=== PATIENT | female | born 1970 | race Caucasian/White ===

== ENCOUNTER 2025-04-13 19:15 | Emergency (ER) | payer OTHER, SELFPAY ==
--- NOTE | 2025-04-13 19:16 | ED_ITS ---
HPI - Extremity Problem General Chief complaint: Extremity Problem,Nontraumatic Stated complaint: Swelling In Feet and Legs Time Seen by Provider: 04/13/25 19:16 Source: patient Mode of arrival: ambulatory Limitations: no limitations History of Present Illness HPI Narrative: Alyse is a 54 year old female patient presenting to the clinic today with c/o bilateral lower extremity swelling x 2-3 days. Her father is at [facility] and recently had a 3 way bypass surgery. Has been sitting a lot at [place] and staying in a nearby hotel. Denies any chest pain or shortness of breath. Denies any kidney disease. History of gastric bypass and GERD. Related Data Allergies Allergy/AdvReac Type Severity Reaction Status Date / Time NSAIDS (Non-Steroidal AdvReac Intermediate gastric Verified 04/13/25 19:32 Anti-Inflamma bypass beta blockers AdvReac Intermediate Other Uncoded 04/13/25 19:32 Review of Systems Review of Systems: Pertinent positives per HPI. Patient denies any fever, chills, rash, headache, visual changes, dizziness, cough, runny nose, sore throat, shortness of breath, chest pain, palpitations, nausea, vomiting, diarrhea, constipation, abdominal pain, or any urinary issues. PMFSH Comments At the time of my signature, I reviewed and agree with the nursing past medical, surgical, social, and family history. There is no relevant family history pertinent to the patient complaint. Exam Narrative: General: Well-developed, morbidly obese, in no apparent distress Head: Normocephalic, atraumatic. Cardio: Regular rate and rhythm, s1 and s2 normal, no murmur appreciated. Resp: Clear to auscultation bilaterally, no rhonchi, rales, wheezing or rubs. Musculoskeletal: No deformity, non-tender to palpation, grossly normal range of motion, muscle strength strong and equal, peripheral pulse strong, 1+ pitting edema in bilateral lower extremities, no cyanosis, normal gait and station Course Course Emergency Course: Portions of this record may have been created with voice recognition software. Level of Care: Express Care Visit Vital Signs Vital signs: Vital Signs Temperature 36.4 C 04/13/25 19:25 Pulse Rate 72 04/13/25 19:25 Respiratory Rate 16 04/13/25 19:25 Blood Pressure 178/78 H 04/13/25 19:25 Pulse Oximetry 100 04/13/25 19:25 Oxygen Delivery Room Air 04/13/25 19:25 Temperature 36.4 C 04/13/25 19:25 Pulse Rate 72 04/13/25 19:25 Respiratory Rate 16 04/13/25 19:25 Blood Pressure 178/78 H 04/13/25 19:25 Pulse Oximetry 100 04/13/25 19:25 Oxygen Delivery Room Air 04/13/25 19:25 Vital signs reviewed MDM - Extremity (Nontraumatic) MDM Narrative Medical decision making narrative: At the time of visit patient is resting comfortably on the exam table. Patient appears to be nontoxic. C/o bilateral lower extremity swelling x 2-3 days. Her father is at [place] and recently had a 3 way bypass surgery. Has been sitting a lot at [place] and staying in a nearby hotel. Denies any chest pain or shortness of breath. Denies any kidney disease. History of gastric bypass and GERD. Plan: I suspect patient has bilateral lower extremity edema. Patient has taken 20 mg of Lasix in the past without any adverse effects. Explained to the patient and I am unable to check her labs in the clinic today however I am willing to place her on 20 mg Lasix daily to help with the swelling and she is to follow up with her PCP. Seven day course of Lasix 20 mg prescribed. Supportive measures were discussed with the patient and they voiced understa nding discharge instructions and agrees to treatment plan. Return precautions reviewed Discharge Plan Discharge Clinical Impression: Bilateral lower extremity edema Patient Disposition: Home Condition: Stable Instructions: Antibiotic Form, Leg Edema (ED) Additional Instructions: Increase fluids and stay well hydrated Take Lasix as prescribed Keep legs/feet elevated as much as possible Follow-up with your PCP and 5-7 days if symptoms persist Go to the emergency room if you develop worsening of swelling, chest pain, shortness of breath, lethargy, weakness, or any other concerning symptoms. Patient Language: [place] Prescriptions: New furosemide [Lasix] 20 mg tablet 20 mg PO DAILY 7 Days Qty: 7 0RF Follow-up/Referrals: UNKNOWN,DOCTOR [Non-Staff] - Time of Disposition: 19:33 Quality NIHSS Nursing Documentation ED NIHSS nursing documentation: reviewed/agree
[2025-04-13 19:25] VITALS: BP 178/78; PULSE 72; RESP 16; TEMP 36.4; O2SAT 100
== END 2025-04-13 19:36 | disposition home or self-care (01) ==
PROVIDERS: Emergency Provider Nurse Practitioner Family
DX: R60.0 Localized edema (principal)
CPT/HCPCS: 99203; G0463